=== PATIENT | female | born 1985 | race Hispanic/Latino ===

== ENCOUNTER 2024-04-19 19:17 | Emergency (ER) | payer MEDICAID ==
[2024-04-19 20:05] LABS: APPEARANCE,URINE CLEAR (Clear); BILIRUBIN,URINE NEGATIVE (Negative); COLOR,URINE LIGHT YELLOW (Yellow); GLUCOSE,URINE 2+ (Negative); KETONES,URINE TRACE (Negative); LEUKOCYTE ESTERASE,URINE NEGATIVE (Negative); NITRITE,URINE NEGATIVE (Negative); OCCULT BLOOD,URINE NEGATIVE (Negative); PROTEIN,URINE NEGATIVE (Negative); UROBILINOGEN,URINE 0.2 (0.2-1.0)
[2024-04-19 21:08] LABS: HIV RAPID SCREEN RLFX COMFIRM NON-REACTIVE (Non-React)
[2024-04-19] MEDS: Fluconazole 150 MG Tab PO ONE (21:17)
[2024-04-19 21:32] LABS: C. TRACHOMATIS BY PCR NOT DETECTED; N. GONORRHOEAE BY PCR NOT DETECTED
[2024-04-20 16:53] LABS: RAPID PLASMA REAGIN,RPR NON-REACTIVE (NONREACTIVE)
== END 2024-04-19 22:45 | disposition home or self-care (01) ==
LOC: JD.ED 19:17
DX: B37.31 Acute candidiasis of vulva and vagina (principal); Z79.899 Other long term (current) drug therapy
CPT/HCPCS: 0352U; 36415; 81003; 81025; 86592; 87491; 87591; 99283; A9270-GY; G0433

== ENCOUNTER 2024-05-08 14:53 | Emergency (ER) | payer MEDICAID ==
[2024-05-08] MEDS: Fluconazole 150 MG Tab PO ONE (15:27)
== END 2024-05-08 15:35 | disposition home or self-care (01) ==
LOC: JD.ED 14:53
DX: B37.31 Acute candidiasis of vulva and vagina (principal); F17.200 Nicotine dependence, unspecified, uncomplicated; Z79.899 Other long term (current) drug therapy
CPT/HCPCS: 99283; A9270

== ENCOUNTER 2024-06-19 09:26 | Emergency (ER) | payer MEDICAID ==
[2024-06-19] MEDS: LORazepam 2 MG/ML SDV IVPUSH ONE ×2 (10:11→15:12)
[2024-06-19] MEDS: LORazepam 2 MG/ML SDV ONE ×2 (10:23→15:17)
[2024-06-19 10:28] LABS: BASOPHILS PERCENT AUTO 0.4 % (0.0-1.0); EOSINOPHILS PERCENT AUTO 0.5 % (0.0-6.0); HEMATOCRIT 39.1 % (37.0-47.0); HEMOGLOBIN 13.2 gm/dl (12.0-16.0); IMMATURE GRAN ABSOLUTE AUTO 0.04 K/mm3 (0.00-0.05); IMMATURE GRAN PERCENT AUTO 0.5 % (0.0-0.4); LYMPHOCYTES ABSOLUTE AUTO 0.7 K/mm3 (1.0-4.8); LYMPHOCYTES PERCENT AUTO 8.5 % (24.0-44.0); MEAN CORPUSCULAR HEMOGLOBIN 27.7 pg (28.0-32.0); MEAN CORPUSCULAR HGB CONC 33.8 g/dl (32.0-36.0); MEAN PLATELET VOLUME 8.7 fl (9.4-12.3); MONOCYTES ABSOLUTE AUTO 0.5 K/mm3 (0.0-0.8); MONOCYTES PERCENT AUTO 6.4 % (0.0-8.0); NEUTROPHILS ABSOLUTE AUTO 6.8 K/mm3 (1.8-7.7); NEUTROPHILS PERCENT AUTO 83.7 % (41.0-71.0); PLATELET COUNT,PLT 323 K/mm3 (150-400); RED BLOOD CELL COUNT 4.77 M/mm3 (4.10-5.30); WHITE BLOOD CELL COUNT,WBC 8.08 K/mm3 (3.9-11.3)
[2024-06-19] MEDS: Sodium Chloride 0.9% 1,500 ML IV ONE (10:53)
[2024-06-19] MEDS: Ondansetron 4 MG/2 ML SDV IVPUSH ONE (10:53)
[2024-06-19] MEDS: Ketorolac 30 MG/ML SDV IVPUSH ONE (10:53)
[2024-06-19] MEDS: levETIRAcetam 500 MG/5 ML SDV IVPUSH ONE (10:53)
[2024-06-19 10:59] LABS: A/G RATIO 0.8 (1-2); ALBUMIN 3.4 g/dl (3.4-5.0); ANION GAP 16.1 (5-15); BILIRUBIN TOTAL 0.7 mg/dL (0.2-1.0); CALCIUM 8.8 mg/dL (8.5-10.1); CREATININE 0.8 mg/dL (0.55-1.02); EST CRCL DRUG DOSING (CG) 92.72 mL/min; POTASSIUM,K 3.1 mEq/L (3.5-5.1); PROTEIN TOTAL,TP 7.8 g/dl (6.4-8.2)
[2024-06-19] MEDS ORDERED: Potassium Chloride 10 MEQ in Premix Bag 1 BAG IV ONE (11:52)
[2024-06-19] MEDS: Potassium Chloride 10 MEQ in Premix Bag 1 BAG IV ONE (12:14)
[2024-06-19] MEDS: Potassium Chloride 20 MEQ Tab.ER PO ONE (14:06)
[2024-06-19] MEDS: Acetaminophen 325 MG Tab PO ONE (14:23)
[2024-06-19] MEDS ORDERED: Phenytoin 250 MG/5 ML SDV IVPUSH ONE (15:04)
[2024-06-19] MEDS ORDERED: SODIUM CHLORIDE 0.9% IV ONE (15:07)
[2024-06-19] MEDS ORDERED: PHENYTOIN IV ONE (15:07)
[2024-06-19] MEDS ORDERED: Acetaminophen 650 MG Supp RECTAL ONE (15:12)
[2024-06-19 15:29] LABS: APPEARANCE,URINE CLEAR (Clear); BILIRUBIN,URINE NEGATIVE (Negative); COLOR,URINE YELLOW (Yellow); GLUCOSE,URINE 3+ (Negative); KETONES,URINE NEGATIVE (Negative); LEUKOCYTE ESTERASE,URINE TRACE (Negative); NITRITE,URINE NEGATIVE (Negative); OCCULT BLOOD,URINE NEGATIVE (Negative); PROTEIN,URINE NEGATIVE (Negative)
[2024-06-19 15:33] LABS: BARBITURATE SCREEN,URINE NEGATIVE (CUTOFF=200); BENZODIAZEPINES SCREEN,URINE PRESUMPTIVE POSITIVE (CUTOFF=150); BUPRENORPHINE SCREEN,URINE NEGATIVE (CUTOFF=10); METHADONE SCREEN, URINE NEGATIVE (CUTOFF=200); METHAMPHETAMINES SCREEN, URINE NEGATIVE (CUTOFF=500); OXYCODONE SCREEN,URINE NEGATIVE (CUT0FF=100); THC SCREEN,URINE 20 NG/ML PRESUMPTIVE POSITIVE (CUTOFF=50)
[2024-06-19] MEDS: SODIUM CHLORIDE 0.9% IV ONE (15:38)
[2024-06-19] MEDS: PHENYTOIN IV ONE (15:38)
[2024-06-19 15:51] LABS: AMPHETAMINES SCREEN, URINE NEGATIVE (CUTOFF=500)
[2024-06-19 16:08] LABS: BACTERIA,URINE FEW /hpf (FEW); MUCUS,URINE FEW /hpf (FEW); RBC,URINE 0-5 /hpf (0-5); WBC,URINE 0-5 /hpf (0-5)
== END 2024-06-19 16:31 ==
LOC: JD.ED 09:26
DX: G40.909 Epilepsy, unspecified, not intractable, without status epilepticus (principal); B34.9 Viral infection, unspecified; E87.6 Hypokalemia; R73.9 Hyperglycemia, unspecified; Z79.899 Other long term (current) drug therapy
CPT/HCPCS: 36415; 70450; 71045; 80053; 80306; 81001; 82550; 82947; 84703; 85025; 87428; 87651; 93005; 96361; 96365; 96367; 96375; 96376; 99285; A9270; C1758; J1165; J1885; J1953; J2060; J2405; J3480; J3490; J7030; 93010; 99284

== ENCOUNTER 2024-08-06 22:52 | Emergency (ER) | payer MEDICAID ==
[2024-08-06] MEDS ORDERED: Sodium Chloride 0.9% 10 ML Syringe FLUSH PRN (23:01)
[2024-08-06] MEDS: LORazepam 2 MG/ML SDV IVPUSH ONE (23:30)
[2024-08-06] MEDS: LORazepam 2 MG/ML SDV ONE (23:38)
[2024-08-06 23:39] LABS: BASOPHILS PERCENT AUTO 0.4 % (0.0-1.0); EOSINOPHILS ABSOLUTE AUTO 0.3 K/mm3 (0.0-0.4); EOSINOPHILS PERCENT AUTO 2.4 % (0.0-6.0); HEMATOCRIT 38.8 % (37.0-47.0); HEMOGLOBIN 13.1 gm/dl (12.0-16.0); IMMATURE GRAN ABSOLUTE AUTO 0.04 K/mm3 (0.00-0.05); IMMATURE GRAN PERCENT AUTO 0.4 % (0.0-0.4); LYMPHOCYTES ABSOLUTE AUTO 3.2 K/mm3 (1.0-4.8); LYMPHOCYTES PERCENT AUTO 27.9 % (24.0-44.0); MEAN CORPUSCULAR HGB CONC 33.8 g/dl (32.0-36.0); MEAN CORPUSCULAR VOLUME 82.9 fl (83.0-99.0); MONOCYTES ABSOLUTE AUTO 0.7 K/mm3 (0.0-0.8); MONOCYTES PERCENT AUTO 6.3 % (0.0-8.0); NEUTROPHILS ABSOLUTE AUTO 7.1 K/mm3 (1.8-7.7); NEUTROPHILS PERCENT AUTO 62.6 % (41.0-71.0); PLATELET COUNT,PLT 324 K/mm3 (150-400); RED BLOOD CELL COUNT 4.68 M/mm3 (4.10-5.30); WHITE BLOOD CELL COUNT,WBC 11.34 K/mm3 (3.9-11.3)
[2024-08-06] MEDS: levETIRAcetam 2,000 MG in Sodium Chloride 0.9% 100 ML IV ONE (23:50)
[2024-08-06 23:59] LABS: A/G RATIO 0.8 (1-2); ALANINE AMINOTRANSFERASE,ALT 22 U/L (14-59); ALBUMIN 3.3 g/dl (3.4-5.0); ALKALINE PHOSPHATASE 72 U/L (46-116); ANION GAP 13.8 (5-15); ASPARTATE AMNIOTRANSFERASE,AST 13 U/L (15-37); BILIRUBIN TOTAL 0.2 mg/dL (0.2-1.0); BLOOD UREA NITROGEN,BUN 12 mg/dL (7-18); CALCIUM 9.2 mg/dL (8.5-10.1); CARBON DIOXIDE,CO2 27 mEq/L (21-32); CHLORIDE,CL 103 mEq/L (98-107); CREATINE KINASE,CK 55 U/L (26-192); ESTIMATED GFR 74 mL/min (>60); GLUCOSE RANDOM 299 mg/dL (70-99); POTASSIUM,K 3.8 mEq/L (3.5-5.1); PROTEIN TOTAL,TP 7.5 g/dl (6.4-8.2); SODIUM,NA 140 mEq/L (136-145)
[2024-08-07] MEDS: Acetaminophen 325 MG Tab PO ONE ×2 (00:06→00:35)
[2024-08-07] MEDS: diphenhydrAMINE 25 MG Cap PO ONE (00:15)
[2024-08-07] MEDS: diphenhydrAMINE 50 MG/ML SDV IVPUSH ONE (00:21)
[2024-08-07 00:27] LABS: BARBITURATE SCREEN,URINE NEGATIVE (CUTOFF=200); BENZODIAZEPINES SCREEN,URINE NEGATIVE (CUTOFF=150); BUPRENORPHINE SCREEN,URINE NEGATIVE (CUTOFF=10); METHADONE SCREEN, URINE NEGATIVE (CUTOFF=200); METHAMPHETAMINES SCREEN, URINE NEGATIVE (CUTOFF=500); OXYCODONE SCREEN,URINE NEGATIVE (CUT0FF=100); THC SCREEN,URINE 20 NG/ML NEGATIVE (CUTOFF=50)
[2024-08-07 00:52] LABS: AMPHETAMINES SCREEN, URINE NEGATIVE (CUTOFF=500)
== END 2024-08-07 02:00 | disposition home or self-care (01) ==
LOC: JD.ED 22:52
DX: G40.909 Epilepsy, unspecified, not intractable, without status epilepticus (principal); Z79.899 Other long term (current) drug therapy
CPT/HCPCS: 36415; 70450; 71045; 80053; 80306; 80307; 82550; 85025; 87428; 93005; 96374; 96375; 99285; A9270; J1953; J2060; 93010; 99284

== ENCOUNTER 2025-02-09 17:36 | Emergency (ER) | payer MEDICAID ==
[2025-02-09] MEDS: Ketorolac 60 MG/2 ML SDV IM ONE (18:31)
== END 2025-02-09 19:57 | disposition home or self-care (01) ==
LOC: JD.ED 17:36
DX: J98.9 Respiratory disorder, unspecified (principal); Z79.51 Long term (current) use of inhaled steroids; Z79.899 Other long term (current) drug therapy
CPT/HCPCS: 71046; 87426; 96372; 99285; A9270; J1885

== ENCOUNTER 2025-02-11 11:04 | Emergency (ER) | payer MEDICAID ==
[2025-02-11] MEDS: Sodium Chloride 0.9% 10 ML Syringe FLUSH PRN (13:03)
[2025-02-11 13:49] LABS: BASOPHILS ABSOLUTE AUTO 0.0 K/mm3 (0.0-0.2); BASOPHILS PERCENT AUTO 0.3 % (0.0-1.0); EOSINOPHILS ABSOLUTE AUTO 0.2 K/mm3 (0.0-0.4); EOSINOPHILS PERCENT AUTO 2.3 % (0.0-6.0); IMMATURE GRAN ABSOLUTE AUTO 0.03 K/mm3 (0.00-0.05); IMMATURE GRAN PERCENT AUTO 0.3 % (0.0-0.4); LYMPHOCYTES ABSOLUTE AUTO 2.3 K/mm3 (1.0-4.8); LYMPHOCYTES PERCENT AUTO 24.6 % (24.0-44.0); MEAN PLATELET VOLUME 8.9 fl (9.4-12.3); MONOCYTES ABSOLUTE AUTO 0.6 K/mm3 (0.0-0.8); MONOCYTES PERCENT AUTO 6.0 % (0.0-8.0); NEUTROPHILS ABSOLUTE AUTO 6.3 K/mm3 (1.8-7.7); NEUTROPHILS PERCENT AUTO 66.5 % (41.0-71.0); NRBC ABSOLUTE 0.00 (0.00-0.02); NRBC PERCENT 0.0 % (0.0-0.2); PLATELET COUNT,PLT 320 K/mm3 (150-400); RED BLOOD CELL COUNT 5.13 M/mm3 (4.10-5.30); WHITE BLOOD CELL COUNT,WBC 9.46 K/mm3 (3.9-11.3)
[2025-02-11 14:07] LABS: A/G RATIO 0.9 (1-2); ALANINE AMINOTRANSFERASE,ALT 33.0 U/L (14-59); ASPARTATE AMNIOTRANSFERASE,AST 19.0 U/L (15-37); BILIRUBIN TOTAL 0.5 mg/dL (0.2-1.0); BLOOD UREA NITROGEN,BUN 10.0 mg/dL (7-18); CARBON DIOXIDE,CO2 25.0 mEq/L (21-32); CHLORIDE,CL 101.0 mEq/L (98-107); CREATININE 0.7 mg/dL (0.55-1.02); EST CRCL DRUG DOSING (CG) 105.97 mL/min; ESTIMATED GFR 113.0 mL/min (>60); GLUCOSE RANDOM 231.0 mg/dL (70-99); POTASSIUM,K 3.8 mEq/L (3.5-5.1); PROTEIN TOTAL,TP 7.4 g/dl (6.4-8.2); SODIUM,NA 135.0 mEq/L (136-145)
[2025-02-11] MEDS: Ketorolac 30 MG/ML SDV IVPUSH ONE (14:36)
[2025-02-11 16:34] LABS: C. TRACHOMATIS BY PCR NOT DETECTED; N. GONORRHOEAE BY PCR NOT DETECTED
== END 2025-02-11 14:58 | disposition home or self-care (01) ==
LOC: JD.ED 11:04
DX: J98.9 Respiratory disorder, unspecified (principal); R55 Syncope and collapse; E11.9 Type 2 diabetes mellitus without complications; Z79.899 Other long term (current) drug therapy; Z79.84 Long term (current) use of oral hypoglycemic drugs
CPT/HCPCS: 36415; 71046; 80053; 81515; 85025; 85379; 87491; 87591; 93005; 96361; 96374; 99284; A9270; J1885; J7030; 36410